=== PATIENT | male | born 1950 | race Caucasian/White ===

== ENCOUNTER 2024-11-25 09:54 | Outpatient (REF) | payer OTHER, SELFPAY ==
--- OUTSIDE RECORDS SUMMARY | 2024-11-25 11:11 | XMS_ITS | Encounter Summary ---
Author Organization [facility] Address [address] [address] Phone Care Team Providers Care Wallboard Worker Name Role Phone Louie Dominguez MD Primary Care Provider [phone] Encounter Details Date Type Department Care Team (Late st Contact Info) Description 11/16/2024 Orders Only [facility] [address] [place] [address] Alan Rivas MD [address] [address] Chronic kidney disease stage 4 (HCC) Social History Tobacco Use Types Packs/Day Years Used Date Smoking Tobacco: Former Cigarettes Q uit: 1993 Passive Smoke Exposure: Never Smokeless Tobacco: Never Alcohol Use Standard Drinks/Week Comments Yes 0 (1 standard drink = 0.6 oz pur e alcohol) 1-2 times a year Sex and Gender Information Value Date Recorded Sex Assigned at Not on file Legal Sex Male 9:26 AM EDT Gender Identity Not on file Sexual Orientation Not on file documented as of this encounter Plan of Treatment Upcoming Encounters Date Type Department Care Team (Late st Contact Info) Description 01/19/2025 3:15 PM EDT Office Visit [facility] [address] [place] [id number] Alan Rivas MD [address] [address] documented as of this encounter Visit Diagnoses Diagnosis Chronic kidney disease stage 4 (HCC) documented in this encounter Care Teams Wallboard Worker Relationship Specialty Start Date End Date Louie Dominguez MD [address] [place] [address], [address] [place], [place] PCP - General Internal Medicine 05/28/23 documented as of this encounter
--- OUTSIDE RECORDS SUMMARY | 2024-11-25 11:11 | XMS_ITS | Clinical Summary ---
Author Organization [facility] Address [address] [address] Phone Care Team Providers Care Compensation And Benefits Administrator Name Role Phone Louie Dominguez MD Primary Care Provider [phone] Allergies Active Allergy Reactions Criticality Noted Date Comments Iodinated Contrast Media Hives High 11/21/2005 Latex Hives 11/23/2015 Pseudoephedrine Hives 11/21/2005 Medications amLODIPine (NORVASC) 10 MG tablet Take 10 mg by mouth 1 (one) time each day 3 Active aspirin (ST ZAMZAM) 81 MG EC tablet Take 81 mg by mouth 1 Active atorvastatin (LIPITOR) 80 MG tablet 3 Active betamethasone, augmented, (DIPROLENE) 0.05 % cream APPLY CREAM TOPICALLY TO AFFECTED AREA TWICE DAILY 3 Active chlorthalidone 25 MG tablet Take 25 mg by mouth 1 (one) time each day 3 Active cyanocobalamin (VITAMIN B-12) 2500 MCG tablet Take 2,500 mcg by mouth 2 Active doxazosin (CARDURA) 2 MG tablet 3 Active doxazosin (CARDURA) 4 MG tablet 3 Active Ferrocite 324 MG tablet Take 1 tablet by mouth 1 (one) time each day 3 Active folic acid (FOLVITE) 1 MG tablet Take 1,000 mcg by mouth 1 (one) time each day 3 Active gemfibrozil (LOPID) 600 MG tablet 3 Active glipiZIDE (GLUCOTROL) 10 MG tablet 3 Active levothyroxine (SYNTHROID, LEVOTHROID) 88 MCG tablet 3 Active Januvia 100 MG tablet 3 Active Dapagliflozin Propanediol (Farxiga) 10 MG tablet Take 10 mg by mouth 1 (one) time each day in the morning Active lisinopril 40 MG tablet Take 0.5 tablets (20 mg total) by mouth 1 (one) time each day 45 tablet 3 4 Active cloNIDine (Ojgtuqbt-VBG-0) 0.1 MG/24HR patch weekly Place 1 patch on the skin per week 13 patch 3 4 02/04/20 25 Active cholecalciferol (VITAMIN D-3) 50 MCG (2000 UT) tablet Take 1 tablet (2,000 Units total) by mouth 1 (one) time each day 4 Active glimepiride (AMARYL) 4 MG tablet Take 4 mg by mouth 1 (one) time each day before breakfast Active insulin glargine (LANTUS) 100 UNIT/ML injection Inject under the skin every night Active ezetimibe (ZETIA) 10 MG tablet Take 10 mg by mouth 1 (one) time each day Active Active Problems Problem Noted Date Diagnosed Date Hyperkalemia 07/21/2024 Chronic kidney disease stage 4 07/21/2024 Other acute kidney failure 02/04/2024 Type 2 diabetes mellitus wit h diabetic chronic kidney disease 02/04/2024 Vitamin D deficiency, not otherwise specified Anemia 07/02/2023 07/02/2023 Chronic kidney disease stage 3 07/02/2023 1 Overview (07/02/2023): Pt's GFR<50 from all results in chart for year 2020. BIN Hypertensive disorder 07/02/2023 07/02/2023 Type 2 diabetes mellitus without complication 07/02/2023 Overview (07/02/2023): From 01/10/2020 Podiatry note: Vascular evaluation reveals decreased dorsalis pedis and posterior tibial pulses bilaterally, cold to cool pedal temperature from distal toes to ankle bilaterally and decreased pedal hair growth bilaterally. Capillary fill time is delayed to all digits bilaterally . Benign essential hypertension 11/21/2005 Resolved Problems Problem Noted Date Diagnosed Date Resolved Date Benign paroxysmal positional vertigo 07/02/202306/1407/02/2023 Benign prostatic hyperplasia 07/02/2023 07/02/2023 07/02/2023 Cobalamin deficiency 07/02/2023 07/02/2023 023 Eczema 07/02/2023 07/02/2023 07/02/2023 Folic acid deficiency 07/02/2023 07/02/20232022 Hyperlipidemia 07/02/2023 07/02/2023 07/02/2023 Methicillin resistant Staphy lococcus aureus infection 07/02/2023 07/02/2023 07/02/2023 Serum creatinine above reference range 07/02/2023 07/02/2023 Migraine variants 08/20/2009 07/02/2023 07/02/2023 Overview (07/02/2023): IMO update Hypothyroidism 11/16/2006 07/02/2023 07/02/2023 Diverticulitis of colon 01/05/2006 07/02/202306/14 Obesity 11/21/2005 07/02/2023 07/02/2023 Pure hypercholesterolemia 11/21/2005 07/02/2023 Encounters Date Type Department Care Team Description 11/16/2024 Orders Only [facility] [place] [phone] Alan Rivas MD Chronic kidney disease stage 4 (HCC) from Last 3 Months Immunizations Name Administration Dates Next Due H1N1 Inj 08/20/2009 H1N1 Inj Preservative Free 08/20/2009 Influenza Split High Dose Pr eservative Free IM 06/11/2020,07/01/2019,05/31/2018,06/05,06/13/2016 Influenza, Unspecified 06/28/2021,2019,07/01/2019,05/31,06/05/2017,06/13/2016,06/08/2015 ,06/14/2014,06/20/2013,06/07/2012,06/14,06/10/2010,07/06/2009, 8,06/28/2007,07/13/2006,09/15/2005 Manju SARS-COV-2 07/17/2021,12/18/2020 Pfizer SARS-COV-2 01/09/2022 Pneumococcal Conjugate 13-Valent 04/09/2022,01/12,01/22/2015 Pneumococcal Polysaccharide 02/20/2017, 4,07/29/1999 Td 10/23/2014,06/20/2013 Td, Unspecified 10/23/2014,06/20/2013,07/15/2002 Tdap 04/09/2022,01/10/2008,07/15/2002 Family History Medical History Relation Comments Myasthenia gravis Brother Cancer Father Heart disease Father Cancer Sister Relation Status Comments Brother Father Sister Social History Tobacco Use Types Packs/Day Years Used Date Smoking Tobacco: Former Cigarettes Q uit: 1993 Passive Smoke Exposure: Never Smokeless Tobacco: Never Tobacco Cessation:Counseling Given: No Alcohol Use Standard Drinks/Week Comments Yes 0 (1 standard drink = 0.6 oz pur e alcohol) 1-2 times a year Sex and Gender Information Value Date Recorded Sex Assigned at Not on file Legal Sex Male 9:26 AM EDT Gender Identity Not on file Sexual Orientation Not on file Last Filed Vital Signs Vital Sign Reading Time Taken Comments Blood Pressure 134/69 07/21/2024 2:31 PM EST Pulse 83 07/21/2024 2:31 PM EST Temperature - - Respiratory Rate - - Oxygen Saturation 97% 07/02/2023 2:15 PM EDT Inhaled Oxygen Concentration - - Weight 107 kg (235 lb) 07/21/2024 2:31 PM EST Height - - Body Mass Index - - Plan of Treatment Upcoming Encounters Date Type Department Care Team (Late st Contact Info) Description 01/19/2025 3:15 PM EDT Office Visit [facility] [address] [place] [address] Alan Rivas MD [address] [address] Health Maintenance Due Date Last Done Comments Colorectal Cancer Screening: Annual FOBT 1999 Colorectal Cancer Screening: Colonoscopy 1999 Colorectal Cancer Screening: Sigmoidoscopy 1999 Diabetes: Hemoglobin A1C 06/02/2023 Diabetes: Ophthalmology Exam 06/02/2023 Diabetes: Pedal Pulse Checked 06/02/2023 Diabetes: Sensory Foot Exam 06/02/2023 Diabetes: Visual Foot Exam 06/02/2023 Influenza Vaccine (#1) 2024 3, 06/28/2021, 06/11/2020, Additional history exists Pneumococcal Vaccine: 65+ Years Completed 04/09/2022, 02/20/2017, 01/22/2015, Additional history exists Hepatitis B Vaccine Aged Out No longe r eligible based on patient's age to complete this topic Insurance Care Teams Compensation And Benefits Administrator Relationship Specialty Start Date End Date Louie Dominguez MD [address] [place] [address], [address] [place], [place] PCP - General Internal Medicine 05/28/23
[2024-11-25 11:24] LABS: Lactic Acid 1.9 mmol/L (0.5-2.0)
[2024-11-25 12:35] LABS: Anion Gap 14 (12-20); Beta-Hydroxybutyrate 0.09 mmol/L (0.02-0.27); Blood Urea Nitrogen 36 mg/dL (9-16); Calcium 9.9 mg/dL (8.4-10.2); Carbon Dioxide 23 mmol/L (22-29); Chloride 105 mmol/L (96-108); Estimated Glomerular Filt Rate 31; Glucose Random 200 mg/dL (60-115); Sodium 137 mmol/L (135-145)
== END 2024-11-25 09:55 | disposition home or self-care (01) ==
LOC: HO.WFDLDS 09:54
PROVIDERS: PCP Internal Medicine; Visit Provider Internal Medicine
DX: E11.65 Type 2 diabetes mellitus with hyperglycemia (principal)
CPT/HCPCS: 36415; 80048; 82010; 83605